=== PATIENT | male | born 1970 | race Caucasian/White ===

== ENCOUNTER 2023-03-28 08:09 | Emergency (ER) | payer BC, MEDICAID ==
[2023-03-28] MEDS ORDERED: Lisinopril 20 MG Tab PO ONE (08:30)
[2023-03-28] MEDS ORDERED: HYDROmorphone 2 MG/ML Syringe IM ONE (08:30)
[2023-03-28] MEDS ORDERED: Promethazine 25 MG/ML SDV IM ONE (08:30)
== END 2023-03-28 08:58 | disposition home or self-care (01) ==
LOC: DL.ED 08:09
DX: G89.18 Other acute postprocedural pain (principal); Z88.0 Allergy status to penicillin
CPT/HCPCS: 96372; 99283; A9270-GY; J1170; J2550

== ENCOUNTER 2023-06-26 19:36 | Emergency (ER) | payer SELFPAY ==
[2023-06-26] MEDS ORDERED: HYDROmorphone 1 MG/ML Syringe IVPUSH ONE (22:59)
[2023-06-26] MEDS ORDERED: Sodium Chloride 0.9% 10 ML Syringe FLUSH PRN (22:59)
[2023-06-26 23:14] LABS: BASOPHILS PERCENT AUTO 0.1 % (0.0-1.0); EOSINOPHILS PERCENT AUTO 1.2 % (1.0-3.0); HEMATOCRIT 45.1 % (40.0-54.0); HEMOGLOBIN 15.3 g/dL (14.0-18.0); LYMPHOCYTES PERCENT AUTO 21.9 % (20.5-50.1); MEAN CORPUSCULAR HGB CONC 33.9 g/dL (33.0-35.0); MEAN CORPUSCULAR VOLUME 85.6 fL (80-100); MONOCYTES PERCENT AUTO 15.7 % (2-8); NEUTROPHILS PERCENT AUTO 61.1 % (42.2-75.2); PLATELET COUNT,PLT 230 10^3/uL (150-450); RED BLOOD CELL COUNT 5.27 10^6/uL (4.6-6.2); WHITE BLOOD CELL COUNT,WBC 6.8 10^3/uL (5.0-10.0)
[2023-06-26 23:35] LABS: A/G RATIO 0.8; ALANINE AMINOTRANSFERASE,ALT 17 U/L (16-63); ALBUMIN 3.4 g/dL (3.4-5.0); ALKALINE PHOSPHATASE 104 U/L (46-116); ANION GAP 12.3 mEq/L (7-13); ASPARTATE AMNIOTRANSFERASE,AST 14 U/L (15-37); BILIRUBIN TOTAL 0.2 mg/dL (0.2-1.0); BLOOD UREA NITROGEN,BUN 14 mg/dL (7-18); BUN/CREATININE RATIO 13.5 (No establ ref range); C-REACTIVE PROTEIN 0.75 ng/dL (<=0.50); CALCIUM 8.4 mg/dL (8.5-10.1); CARBON DIOXIDE,CO2 28 mmol/L (21-32); CHLORIDE,CL 98 mmol/L (98-107); CREATININE 1.04 mg/dL (0.70-1.30); EST CRCL DRUG DOSING (CG) 92.23 mL/min; GLUCOSE RANDOM 108 mg/dL (70-99); POTASSIUM,K 4.3 mmol/L (3.5-5.1); PROTEIN TOTAL,TP 7.8 g/dL (6.4-8.2); SODIUM,NA 134 mmol/L (136-145)
[2023-06-26 23:38] LABS: LACTIC ACID 0.8 mmol/L (0.4-2.0)
[2023-06-26 23:45] LABS: ESTIMATED GFR 87 mL/min (>=60)
[2023-06-26] MEDS ORDERED: Iopamidol 612 MG/ML 100 ML Bottle IVPUSH ONE (23:48)
[2023-06-27] MEDS ORDERED: Lidocaine 1% 5 ML VIAL INJECT ONE (02:41)
[2023-06-27] MEDS ORDERED: Sulfamethoxazole/Trimethoprim 800-160 MG Tab PO ONE (02:44)
[2023-06-27] MEDS ORDERED: Bacitracin Oint 1 GM U/D Packet TOP ONE (02:57)
== END 2023-06-27 03:18 | disposition home or self-care (01) ==
LOC: DL.ED 19:36
DX: L02.31 Cutaneous abscess of buttock (principal); L03.317 Cellulitis of buttock; Z79.82 Long term (current) use of aspirin; Z79.899 Other long term (current) drug therapy; Z88.0 Allergy status to penicillin
CPT/HCPCS: 10060; 36415; 72193; 80053; 83605; 84145; 85025; 86140; 87040; 87070; 96374; 99283-25; 99284; A9270-GY; J1170; J3490; Q9967

== ENCOUNTER 2023-11-29 22:15 | Emergency (ER) | payer BC, MEDICAID ==
[2023-11-29] MEDS ORDERED: Sodium Chloride 0.9% 10 ML Syringe FLUSH PRN (23:27)
[2023-11-29 23:38] LABS: BASOPHILS PERCENT AUTO 0.4 % (0.0-1.0); EOSINOPHILS PERCENT AUTO 7.3 % (1.0-3.0); HEMATOCRIT 42.4 % (40.0-54.0); HEMOGLOBIN 14.4 g/dL (14.0-18.0); LYMPHOCYTES PERCENT AUTO 17.2 % (20.5-50.1); MEAN CORPUSCULAR HEMOGLOBIN 30.2 pg (27.0-34.0); MEAN CORPUSCULAR VOLUME 88.9 fL (80-100); NEUTROPHILS PERCENT AUTO 66.1 % (42.2-75.2); PLATELET COUNT,PLT 262 10^3/uL (150-450); RED BLOOD CELL COUNT 4.77 10^6/uL (4.6-6.2); WHITE BLOOD CELL COUNT,WBC 12.4 10^3/uL (5.0-10.0)
[2023-11-29 23:56] LABS: ALANINE AMINOTRANSFERASE,ALT 20 U/L (16-63); ALBUMIN 3.3 g/dL (3.4-5.0); ALKALINE PHOSPHATASE 101 U/L (46-116); ANION GAP 10.9 mEq/L (7-13); ASPARTATE AMNIOTRANSFERASE,AST 9 U/L (15-37); BILIRUBIN TOTAL 0.2 mg/dL (0.2-1.0); BLOOD UREA NITROGEN,BUN 17 mg/dL (7-18); BUN/CREATININE RATIO 14.7 (No establ ref range); CALCIUM 8.1 mg/dL (8.5-10.1); CARBON DIOXIDE,CO2 28 mmol/L (21-32); CHLORIDE,CL 105 mmol/L (98-107); CREATININE 1.16 mg/dL (0.70-1.30); EST CRCL DRUG DOSING (CG) 82.69 mL/min; GLUCOSE RANDOM 102 mg/dL (70-99); POTASSIUM,K 3.9 mmol/L (3.5-5.1); PROTEIN TOTAL,TP 6.5 g/dL (6.4-8.2); SODIUM,NA 140 mmol/L (136-145)
[2023-11-29 23:57] LABS: A/G RATIO 1.03; ESTIMATED GFR 76 mL/min (>=60); ETHANOL BLOOD MEDICAL < 3 mg/dL (0)
[2023-11-30] MEDS: Iopamidol 612 MG/ML 100 ML Bottle IVPUSH ONE (00:19)
[2023-11-30 01:21] LABS: AMPHETAMINES,URINE NEGATIVE (NEGATIVE); BARBITURATES,URINE NEGATIVE (NEGATIVE); BENZODIAZEPINE,URINE NEGATIVE (NEGATIVE); MDMA (ECSTASY), URINE NEGATIVE (NEGATIVE); METHADONE,URINE NEGATIVE (NEGATIVE); METHAMPHETAMINES,URINE POSITIVE (NEGATIVE); OPIATES,URINE NEGATIVE (NEGATIVE); OXYCODONE,URINE NEGATIVE (NEGATIVE); PHENCYCLIDINE,URINE NEGATIVE (NEGATIVE); TCA,URINE NEGATIVE (NEGATIVE)
[2023-11-30] MEDS ORDERED: Morphine 2 MG/ML SYRINGE IVPUSH ONE (01:43)
== END 2023-11-30 02:22 | disposition home or self-care (01) ==
LOC: DL.ED 22:15
DX: S62.115A Nondisplaced fracture of triquetrum [cuneiform] bone, left wrist, initial encounter for closed fracture (principal); S80.02XA Contusion of left knee, initial encounter; S00.81XA Abrasion of other part of head, initial encounter; R07.81 Pleurodynia; Z88.0 Allergy status to penicillin; Z79.899 Other long term (current) drug therapy; Z79.82 Long term (current) use of aspirin; W17.89XA Other fall from one level to another, initial encounter
CPT/HCPCS: 29125; 36415; 70450; 71260; 72125; 73110; 73564; 74177; 80053; 80305; 80307; 85025; 93010; 99284; Q9967

== ENCOUNTER 2024-04-12 01:20 | Emergency (ER) | payer SELFPAY ==
[2024-04-12] MEDS ORDERED: Sodium Chloride 0.9% 10 ML Syringe FLUSH PRN (01:33)
[2024-04-12 01:45] LABS: BASOPHILS PERCENT AUTO 0.3 % (0.0-1.0); EOSINOPHILS PERCENT AUTO 2.8 % (1.0-3.0); HEMATOCRIT 45.9 % (40.0-54.0); HEMOGLOBIN 15.8 g/dL (14.0-18.0); LYMPHOCYTES PERCENT AUTO 10.9 % (20.5-50.1); MEAN CORPUSCULAR HEMOGLOBIN 30.3 pg (27.0-34.0); MEAN CORPUSCULAR HGB CONC 34.4 g/dL (33.0-35.0); MEAN CORPUSCULAR VOLUME 88.1 fL (80-100); MONOCYTES PERCENT AUTO 11.3 % (2-8); NEUTROPHILS PERCENT AUTO 74.7 % (42.2-75.2); PLATELET COUNT,PLT 274 10^3/uL (150-450); RED BLOOD CELL COUNT 5.21 10^6/uL (4.6-6.2); WHITE BLOOD CELL COUNT,WBC 14.8 10^3/uL (5.0-10.0)
[2024-04-12] MEDS: methylPREDNISolone Sodium Succinate 125 MG/2 ML SDV IVPUSH ONE (02:10)
[2024-04-12 02:13] LABS: PROTHROMBIN TIME 10.1 SEC (9.0-12.0); PTT,PARTIAL THROMBOPLSTIN TIME 26.4 SEC (22.0-34.0)
[2024-04-12 02:14] LABS: A/G RATIO 1.1; ALANINE AMINOTRANSFERASE,ALT 25 U/L (16-63); ALBUMIN 4.2 g/dL (3.4-5.0); ALKALINE PHOSPHATASE 135 U/L (46-116); ANION GAP 15.5 mEq/L (7-13); ASPARTATE AMNIOTRANSFERASE,AST 26 U/L (15-37); BLOOD UREA NITROGEN,BUN 19 mg/dL (7-18); BUN/CREATININE RATIO 14.1 (No establ ref range); CALCIUM 9.4 mg/dL (8.5-10.1); CARBON DIOXIDE,CO2 27 mmol/L (21-32); CHLORIDE,CL 98 mmol/L (98-107); CREATINE KINASE,CK 677 U/L (39-308); CREATININE 1.35 mg/dL (0.70-1.30); EST CRCL DRUG DOSING (CG) 66.09 mL/min; GLUCOSE RANDOM 93 mg/dL (70-99); POTASSIUM,K 3.5 mmol/L (3.5-5.1); SODIUM,NA 137 mmol/L (136-145); URIC ACID 5.3 mg/dL (3.5-7.2)
[2024-04-12 02:21] LABS: LACTIC ACID 1.4 mmol/L (0.4-2.0)
[2024-04-12 02:35] LABS: ESTIMATED GFR 63 mL/min (>=60); ETHANOL BLOOD MEDICAL < 3 mg/dL (0)
[2024-04-12 02:43] LABS: APPEARANCE,URINE CLEAR (CLEAR); BILIRUBIN,URINE SMALL (NEGATIVE); COLOR,URINE YELLOW (YELLOW); GLUCOSE,URINE NEGATIVE (NEGATIVE); KETONES,URINE 15 (NEGATIVE); LEUKOCYTE ESTERASE,URINE NEGATIVE (NEGATIVE); NITRITE,URINE NEGATIVE (NEGATIVE); OCCULT BLOOD,URINE MODERATE (NEGATIVE); PH,URINE 5.5 (5.0-9.0); PROTEIN,URINE 100 (NEGATIVE); UROBILINOGEN,URINE 0.2 mg/dL (0.2-1.0)
[2024-04-12 02:47] LABS: AMPHETAMINES,URINE POSITIVE (NEGATIVE); BARBITURATES,URINE NEGATIVE (NEGATIVE); BENZODIAZEPINE,URINE NEGATIVE (NEGATIVE); MDMA (ECSTASY), URINE NEGATIVE (NEGATIVE); METHADONE,URINE NEGATIVE (NEGATIVE); METHAMPHETAMINES,URINE POSITIVE (NEGATIVE); OPIATES,URINE NEGATIVE (NEGATIVE); OXYCODONE,URINE NEGATIVE (NEGATIVE); PHENCYCLIDINE,URINE NEGATIVE (NEGATIVE); TCA,URINE NEGATIVE (NEGATIVE)
[2024-04-12] MEDS: Sodium Chloride 0.9% 1,000 ML IV ONE ×2 (02:53→03:33)
[2024-04-12 02:59] LABS: AMORPHOUS SEDIMENT,URINE FEW /HPF (NOT SEEN); BACTERIA,URINE FEW /HPF (0-FEW/HPF); EPITHELIAL CELLS,URINE FEW /HPF (NOT SEEN); MUCUS,URINE MANY /LPF (NOT SEEN)
[2024-04-12 05:09] LABS: ANION GAP 15.8 mEq/L (7-13); CALCIUM 8.4 mg/dL (8.5-10.1); EST CRCL DRUG DOSING (CG) 89.22 mL/min; POTASSIUM,K 3.8 mmol/L (3.5-5.1)
== END 2024-04-12 05:33 | disposition home or self-care (01) ==
LOC: DL.ED 01:20
DX: I77.6 Arteritis, unspecified (principal); F15.10 Other stimulant abuse, uncomplicated; F12.90 Cannabis use, unspecified, uncomplicated; R79.89 Other specified abnormal findings of blood chemistry; Z79.82 Long term (current) use of aspirin; Z79.899 Other long term (current) drug therapy; Z90.49 Acquired absence of other specified parts of digestive tract
CPT/HCPCS: 36415; 80048; 80053; 80305; 80307; 81001; 82550; 83605; 83735; 84145; 84550; 85025; 85610; 85651; 85730; 86140; 87040; 96361; 96374; 99283; 99284; J2919; J7030